=== PATIENT | female | born 1955 | race Caucasian/White ===

== ENCOUNTER 2019-04-08 06:45 | Emergency (ER) | payer MEDICARE ==
[~2019-04-08] VITALS: Ht 147.3 cm; Wt 45.4 kg
[2019-04-08 07:16] VITALS: BP 129/80
--- NOTE | 2019-04-08 07:43 | NUR ---
PT AMBULATED TO BED 6.
--- NOTE | 2019-04-08 07:46 | NUR ---
63 Y/O F C/C OF PAIN ON LEFT FOOT, PER PT "GOUT FLAREUP". PAIN 11/12. PT NKA. HX HTN, GOUT, PRE DIABETIC. RX AMLODOPINE. NO N/V/D. SIDE RAIL X1. FAMILY AT BEDSIDE.
--- NOTE | 2019-04-08 07:49 | NUR ---
Dr. Nance is evaluating the patient at bedside.
[2019-04-08 08:03] VITALS: BP 129/80
--- NOTE | 2019-04-08 08:03 | NUR ---
Patient discharged with v/s stable. Written and verbal after care instructions given and explained. Patient alert, oriented and verbalized understanding of instructions. Ambulatory with steady gait. All questions addressed prior to discharge. ID band removed. Patient advised to follow up with PMD. Rx of NORCO, IBUPROFEN, ZOFRAN given. Patient educated on indication of medication including possible reaction and side effects. Opportunity to ask questions provided and answered.
== END 2019-04-08 08:03 | disposition home or self-care (01) ==
LOC: MED 06:45
DX: M79.675 Pain in left toe(s) (principal); I10 Essential (primary) hypertension
CPT/HCPCS: 99283

== ENCOUNTER 2021-01-13 00:25 | Emergency (ER) | payer OTHER ==
[~2021-01-13] VITALS: Ht 160 cm; Wt 52.2 kg
[2021-01-13 00:32] VITALS: BP 189/81
--- NOTE | 2021-01-13 00:32 | NUR ---
65 Y/O FEMALE PRESENTS TO ED WITH C/O OF DIZZINESS AND HIGH BLOOD PRESSURE. PT. STATES THAT SHE HAS STOPPED TAKING HER HTN MEDS. DENIES N/V/DIARRHEA/FEVER. PT. STATES "I HAVE DRY TONGUE." DENIES HEADACHE. DENIES PAIN AT THIS TIME. AAOX4;[facility] 15 MED HX: HTN, "KIDNEY PROBLEMS" ALLERGIES: NKA
--- NOTE | 2021-01-13 00:39 | NUR ---
PATIENT TO LOBBY
--- NOTE | 2021-01-13 00:47 | NUR ---
Dr. Bonner examining patient.
--- NOTE | 2021-01-13 00:49 | NUR ---
PT. AMBULATED TO CHAIR A WITH EVEN AND STEADY GAIT.
[2021-01-13] MEDS ORDERED: lisinopriL 20 MG TAB PO ONE (00:50)
[2021-01-13] MEDS ORDERED: lisinopriL 20 MG TAB ONE (00:53)
--- NOTE | 2021-01-13 02:08 | NUR ---
REASSESSED BP = 124/69 AT THIS TIME Addendum: 01/13/21 at 0209 by PAT REASSESSED BP = 124/79 AT THIS TIME
[2021-01-13] MEDS ORDERED: LISI20TA29 PO (02:27)
[2021-01-13 02:33] VITALS: BP 124/79
--- NOTE | 2021-01-13 02:33 | NUR ---
Patient discharged with v/s stable. Written and verbal after care instructions given and explained. Patient alert, oriented and verbalized understanding of instructions. Ambulatory with steady gait. All questions addressed prior to discharge. ID band removed. Patient advised to follow up with PMD. Rx of LISINOPRIL given. Patient educated on indication of medication including possible reaction and side effects. Opportunity to ask questions provided and answered.
== END 2021-01-13 02:33 | disposition home or self-care (01) ==
LOC: MED 00:25
DX: I10 Essential (primary) hypertension (principal); R42 Dizziness and giddiness; Z91.19 Patient's noncompliance with other medical treatment and regimen; Z79.899 Other long term (current) drug therapy
CPT/HCPCS: 99283

== ENCOUNTER 2021-09-06 19:51 | Emergency (ER) | payer OTHER ==
[~2021-09-06] VITALS: Ht 157.5 cm; Wt 52.3 kg
[~2021-09-06 19:51] MED LIST: LISI20TA29 PO
[2021-09-06 20:00] VITALS: BP 174/91
--- NOTE | 2021-09-06 20:00 | NUR ---
TO BED AMBULATORY
[2021-09-06] MEDS ORDERED: KETOROLAC 60 MG/2 ML VIAL IM ONE ×2 (20:10→20:15)
--- NOTE | 2021-09-06 20:25 | NUR ---
Note undone in EDM - 09/06/21 at 2027 by [facility] 66 YO F BIB SELF WITH C/C OF 10/10 RT KNEE PAIN X3DAYS. PT DENIES INJURIES. DENIES TAKING MEDICATION AT HOME FOR PAIN. RT KNEE APPEARS SLIGHTLY INFLAMMED. FULL ROM PRESENT. HX:HTN DENIES RX AND ALLERGIES
--- NOTE | 2021-09-06 20:28 | NUR ---
66 YO F BIB SELF WITH C/C OF 10/10 LT KNEE PAIN X3DAYS. PT DENIES INJURIES. DENIES TAKING MEDICATION AT HOME FOR PAIN. LT KNEE APPEARS SLIGHTLY INFLAMMED. FULL ROM PRESENT. HX:HTN DENIES RX AND ALLERGIES
--- NOTE | 2021-09-06 20:44 | NUR ---
ERMD AT BEDSIDE
[2021-09-06] MEDS ORDERED: IBUP-2213 PO (20:52)
[2021-09-06 21:10] VITALS: BP 174/91
== END 2021-09-06 21:10 | disposition home or self-care (01) ==
LOC: MED 19:51
DX: M25.562 Pain in left knee (principal); I10 Essential (primary) hypertension; Z79.899 Other long term (current) drug therapy
CPT/HCPCS: 96372; 99283; J1885

== ENCOUNTER 2021-10-16 20:19 | Emergency (ER) | payer OTHER ==
[~2021-10-16] VITALS: Ht 157.5 cm; Wt 63.5 kg
[~2021-10-16 20:19] MED LIST changes: +IBUP-2213 PO
[2021-10-16 20:37] VITALS: BP 165/87
--- NOTE | 2021-10-16 21:21 | NUR ---
Patient returned back from radiology dept.
--- NOTE | 2021-10-16 22:59 | NUR ---
Patient taken to Chair C via wheel chair.
--- NOTE | 2021-10-16 23:06 | NUR ---
Patient being evaluated by physician at bedside.
[2021-10-16] MEDS ORDERED: NAPR-1704 PO (23:12)
--- NOTE | 2021-10-16 23:16 | NUR ---
Patient discharged with v/s stable. Written and verbal after care instructions given and explained. Patient verbalized understanding. Ambulatory with steady gait. All questions addressed prior to discharge. Advised to follow up with PMD.
== END 2021-10-16 23:16 | disposition home or self-care (01) ==
LOC: MED 20:19
DX: M25.572 Pain in left ankle and joints of left foot (principal); I10 Essential (primary) hypertension
CPT/HCPCS: 73610; 73630; 99284

== ENCOUNTER 2022-06-13 07:15 | Emergency (ER) | payer OTHER ==
[~2022-06-13] VITALS: Ht 152.4 cm; Wt 53.1 kg
[~2022-06-13 07:15] MED LIST changes: +NAPR-1704 PO
[2022-06-13 07:31] VITALS: BP 145/78
[2022-06-13] MEDS ORDERED: ACYCLOVIR 200 MG CAP PO ONE (08:00)
[2022-06-13] MEDS ORDERED: KEN.1C TP (08:04)
[2022-06-13] MEDS ORDERED: PRED20TA5 PO (08:04)
[2022-06-13] MEDS ORDERED: ACYC-278 PO (08:04)
[2022-06-13] MEDS ORDERED: DIPH-988 PO (08:04)
--- NOTE | 2022-06-13 08:05 | NUR ---
66/F C/O RED, ITCHY PAINFUL RASH TO RIGHT HIP X2 DAYS. STATES SHE "PUT BAKING SODA" TO SITE WITH NO RELIEF, DENIES FEVERS, CHILLS. SITE APPEARS RED AND TENDER TO TOUCH.
--- NOTE | 2022-06-13 08:11 | NUR ---
Patient discharged with v/s stable. Written and verbal after care instructions ABOUT SHINGLES given and explained. Patient alert, oriented and verbalized understanding of instructions. Ambulatory with steady gait. All questions addressed prior to discharge. ID band removed. Patient advised to follow up with PMD. Rx of ACYCLOVIR, BENADRYL, KENALOG AND DELTASONE given. Patient educated on indication of medication including possible reaction and side effects. Opportunity to ask questions provided and answered.
== END 2022-06-13 08:11 | disposition home or self-care (01) ==
LOC: MED 07:15
DX: B02.9 Zoster without complications (principal); I10 Essential (primary) hypertension; Z87.448 Personal history of other diseases of urinary system; Z79.899 Other long term (current) drug therapy; Z79.1 Long term (current) use of non-steroidal anti-inflammatories (NSAID)
CPT/HCPCS: 99283

== ENCOUNTER 2022-11-25 20:28 | Emergency (ER) | payer OTHER ==
[~2022-11-25] VITALS: Ht 152.4 cm; Wt 54.0 kg
[~2022-11-25 20:28] MED LIST changes: +ACYC-278 PO; +DIPH-988 PO; +KEN.1C TP; +PRED20TA5 PO
[2022-11-25 20:32] VITALS: BP 172/90; PULSE 77; RESP 17; TEMP 97.9; O2SAT 98
[2022-11-25] MEDS ORDERED: MORPHINE SULFATE 4 MG/ML SYR IM ONE (21:35)
[2022-11-25] MEDS ORDERED: ALLO100T21 PO (21:45)
[2022-11-25] MEDS ORDERED: INDO-305 PO (21:45)
[2022-11-25 23:00] VITALS: BP 124/70; PULSE 71; RESP 18; O2SAT 96
== END 2022-11-25 23:00 | disposition home or self-care (01) ==
LOC: MED 20:28
DX: M10.071 Idiopathic gout, right ankle and foot (principal); I10 Essential (primary) hypertension; Z87.448 Personal history of other diseases of urinary system; Z79.899 Other long term (current) drug therapy; Z79.1 Long term (current) use of non-steroidal anti-inflammatories (NSAID)
CPT/HCPCS: 96372; 99283; J2270

== ENCOUNTER 2022-12-16 09:54 | Emergency (ER) | payer OTHER ==
[~2022-12-16] VITALS: Ht 146.1 cm; Wt 52.6 kg
[~2022-12-16 09:54] MED LIST changes: +ALLO100T21 PO; +INDO-305 PO
[2022-12-16 10:11] VITALS: BP 158/88; PULSE 86; RESP 20; TEMP 99.1; O2SAT 100
[2022-12-16] MEDS ORDERED: MORPHINE SULFATE 4 MG/ML SYR IM ONE (12:45)
[2022-12-16 13:26] VITALS: O2SAT 100
[2022-12-16 13:40] LABS: BASOPHILS # (AUTO) 0.1 K/uL (0.00-0.22); EOSINOPHILS # (AUTO) 0.3 K/uL (0-0.4); EOSINOPHILS % (AUTO) 3.4 % (0.0-4.0); HEMATOCRIT 39.6 % (36-48); HEMOGLOBIN 13.3 g/dL (12.0-16.0); LYMPHOCYTES # (AUTO) 1.9 K/uL (2.5-16.5); LYMPHOCYTES % (AUTO) 23.1 % (20.5-51.1); MEAN CORPUSCULAR HEMOGLOBIN 30 pg (27-31); MEAN CORPUSCULAR HGB CONC 34 g/dL (33-37); MEAN CORPUSCULAR VOLUME 87.6 fL (80-94); MONOCYTES # (AUTO) 0.8 K/uL (0.8-1.0); MONOCYTES % (AUTO) 9.8 % (1.7-9.3); NEUTROPHILS # (AUTO) 5.2 K/uL (1.8-7.7); NEUTROPHILS % (AUTO) 62.7 % (42.2-75.2); PLATELET COUNT (AUTO) 278 K/uL (140-450); RED BLOOD CELL COUNT(AUTO) 4.52 MIL/uL (4.20-5.40); RED CELL DISTRIBUTION WIDTH 13.6 % (11.6-13.7); WHITE BLOOD COUNT (AUTO) 8.4 K/uL (4.8-10.8)
[2022-12-16 14:03] LABS: ALBUMIN 3.8 g/dL (3.4-5.0); ANION GAP 11.1 (8-16); CALCIUM 9.2 mg/dL (8.5-10.1); POTASSIUM 4.1 mmol/L (3.5-5.1); TOTAL BILIRUBIN 0.2 mg/dL (0.0-1.0); TOTAL PROTEIN, SERUM 8.6 g/dL (6.4-8.2)
[2022-12-16] MEDS ORDERED: MORPHINE SULFATE 4 MG/ML SYR ONE (14:15)
[2022-12-16] MEDS ORDERED: NAPR-54 PO (14:23)
[2022-12-16 14:38] VITALS: BP 155/88; PULSE 86; RESP 20; TEMP 99.1
== END 2022-12-16 14:37 | disposition home or self-care (01) ==
LOC: MED 09:54
DX: M10.9 Gout, unspecified (principal); Z79.899 Other long term (current) drug therapy
CPT/HCPCS: 36415; 80053; 85025; 96372; 99283; J2270